=== PATIENT | female | born 1970 | race Hispanic/Latino ===

== ENCOUNTER 2023-03-09 14:20 | Emergency (ER) | payer BC ==
[~2023-03-09] VITALS: Ht 152.4 cm; Wt 70.3 kg
[2023-03-09 14:22] VITALS: BP 139/83; PULSE 79; RESP 16
== END 2023-03-09 18:30 | disposition left against medical advice (07) ==
LOC: EDH 14:20
DX: R10.9 Unspecified abdominal pain (principal); Z53.21 Procedure and treatment not carried out due to patient leaving prior to being seen by health care provider